=== PATIENT | female | born 1970 | race Asian ===

== ENCOUNTER 2020-05-02 23:40 | Emergency (ER) | payer SELFPAY ==
[~2020-05-02] VITALS: Ht 160 cm; Wt 65.9 kg
[2020-05-03] MEDS ORDERED: DICYCLOMINE HCL 10 MG/ML 2 ML AMP IM ONE (01:45)
[2020-05-03] MEDS ORDERED: KETOROLAC TROMETHAMINE 30 MG/ML VIAL IM ONE (01:45)
[2020-05-03 02:30] VITALS: BP 111/65
[2020-05-03 02:35] LABS: BASOPHILS % (AUTO) 0.4 % (0.0-2.0); HEMATOCRIT 35.4 % (36-46); HEMOGLOBIN 11.9 g/dL (12.0-16.0); LYMPHOCYTES # (AUTO) 1.3 K/uL (1.0-4.8); LYMPHOCYTES % (AUTO) 20.7 % (22.0-44.0); MEAN CORPUSCULAR HEMOGLOBIN 29.2 pg (26.0-34.0); MEAN CORPUSCULAR HGB CONC 33.6 G/dL (31.0-37.0); MEAN CORPUSCULAR VOLUME 87 fL (80-100); MONOCYTES # (AUTO) 0.4 K/uL (0.1-1.0); MONOCYTES % (AUTO) 5.7 % (2.0-9.0); NEUTROPHILS # (AUTO) 3.2 K/uL (1.8-7.7); NEUTROPHILS % (AUTO) 50.2 % (40.0-70.0); PLATELET COUNT (AUTO) 293 K/uL (150-450); RED BLOOD CELL COUNT(AUTO) 4.08 MIL/uL (4.00-5.20); RED CELL DISTRIBUTION WIDTH 13.8 % (11.5-14.5)
[2020-05-03 02:40] LABS: APPEARANCE,URINE CLOUDY (CLEAR); GLUCOSE, URINE (UA) NEGATIVE (NEGATIVE); KETONES,URINE 40 mg/dL (NEGATIVE); LEUKOCYTE ESTERASE ,URINE SMALL (NEGATIVE); NITRATE,URINE NEGATIVE (NEGATIVE); OCCULT BLOOD,URINE NEGATIVE (NEGATIVE); PROTEIN,URINE NEGATIVE (NEGATIVE)
[2020-05-03 02:44] LABS: ANION GAP 4 mmol/L (8-16); CALCIUM, TOTAL 8.8 mg/dL (8.8-10.5); CARBON DIOXIDE 30 mmol/L (22-29); CHLORIDE 106 mmol/L (98-107); CREATININE 0.96 mg/dL (0.60-1.30); GLOMERULAR FILTR. RATE CALC > 60 mL/min (>60); GLUCOSE,RANDOM 130 mg/dL (70-110); POTASSIUM 3.3 mmol/L (3.5-5.1); SODIUM SERUM 140 mmol/L (136-145); UREA NITROGEN, BLOOD 20 mg/dL (7-18)
[2020-05-03 02:48] LABS: BILIRUBIN,URINE PRELIM. POSITIVE (NEGATIVE)
[2020-05-03 02:52] LABS: ALANINE AMINOTRANSFERASE 15 U/L (12-78); ALBUMIN 3.2 g/dL (3.4-5.0); ALKALINE PHOSPHATASE 78 U/L (46-116); ASPARTATE AMINOTRANSFERASE 15 U/L (15-37); BILIRUBIN,TOTAL 0.4 mg/dL (0.1-1.0); LIPASE 120 U/L (73-393)
[2020-05-03 02:58] LABS: BACTERIA,URINE Few /HPF (None Seen); RBC,URINE 0-2 /HPF (0-2); SQUAMOUS EPITHELIAL CELL,UR Few /LPF (None Seen)
[2020-05-03] MEDS ORDERED: ONDANSETRON HCL 4 MG TABLET PO ONE (03:30)
[2020-05-03] MEDS ORDERED: RISP0.5T61 PO (21:57)
== END 2020-05-03 03:38 | disposition home or self-care (01) ==
LOC: EMS 23:40
DX: R10.9 Unspecified abdominal pain (principal); R19.7 Diarrhea, unspecified; R11.2 Nausea with vomiting, unspecified; F17.210 Nicotine dependence, cigarettes, uncomplicated
CPT/HCPCS: 36415; 80053; 81001; 83690; 83735; 85025; 96372; 99284; J0500; J1885; Q0162

== ENCOUNTER 2020-05-03 21:56 | Emergency (ER) | payer SELFPAY ==
[~2020-05-03] VITALS: Ht 160 cm; Wt 84.1 kg
[2020-05-03] MEDS ORDERED: RISP0.5T61 PO (21:57)
[2020-05-03] MEDS ORDERED: RisperiDONE 1 MG TABLET PO ONE ×2 (22:30)
[2020-05-03 23:30] VITALS: BP 121/74
== END 2020-05-03 23:33 | disposition home or self-care (01) ==
LOC: EMS 21:56
DX: L84 Corns and callosities (principal); F20.9 Schizophrenia, unspecified

== ENCOUNTER 2020-05-05 02:33 | Emergency (ER) | payer SELFPAY ==
[~2020-05-05] VITALS: Ht 160 cm; Wt 87.7 kg
[~2020-05-05 02:33] MED LIST: RISP0.5T61 PO
[2020-05-05 02:50] VITALS: BP 110/64
[2020-05-05] MEDS ORDERED: RisperiDONE 1 MG TABLET PO ONE (03:15)
== END 2020-05-05 03:45 | disposition home or self-care (01) ==
LOC: EMS 02:33
DX: L84 Corns and callosities (principal); F20.9 Schizophrenia, unspecified; F17.210 Nicotine dependence, cigarettes, uncomplicated

== ENCOUNTER 2024-06-20 00:13 | Emergency (ER) | payer MEDICAID ==
[~2024-06-20] VITALS: Ht 160 cm; Wt 75.0 kg
[2024-06-20 00:23] VITALS: BP 120/61; PULSE 110; RESP 16; TEMP 98.5; O2SAT 96
[2024-06-20 01:17] LABS: BASOPHILS % (AUTO) 0.4 % (0.0-2.0); EOSINOPHILS % (AUTO) 0.2 % (1.0-6.0); HEMATOCRIT 39.4 % (36-46); HEMOGLOBIN 12.7 g/dL (12.0-16.0); LYMPHOCYTES # (AUTO) 1.6 K/uL (1.0-4.8); LYMPHOCYTES % (AUTO) 16.4 % (22.0-44.0); MEAN CORPUSCULAR HEMOGLOBIN 28.1 pg (26.0-34.0); MEAN CORPUSCULAR HGB CONC 32.3 G/dL (31.0-37.0); MEAN CORPUSCULAR VOLUME 87 fL (80-100); MONOCYTES # (AUTO) 0.7 K/uL (0.1-1.0); MONOCYTES % (AUTO) 7.1 % (2.0-9.0); NEUTROPHILS # (AUTO) 7.2 K/uL (1.8-7.7); NEUTROPHILS % (AUTO) 75.9 % (40.0-70.0); PLATELET COUNT (AUTO) 286 K/uL (150-450); RED BLOOD CELL COUNT(AUTO) 4.52 MIL/uL (4.00-5.20); RED CELL DISTRIBUTION WIDTH 14.9 % (11.5-14.5); WHITE BLOOD COUNT (AUTO) 9.4 K/uL (4.5-11.0)
[2024-06-20 01:21] LABS: PH,URINE DRUG SCREEN 5.5 (5.0-8.0)
[2024-06-20 01:27] LABS: ALCOHOL, URINE DRUG SCREEN NEGATIVE (NEGATIVE); AMPHET/METH SCREEN,URINE NEGATIVE (NEGATIVE); BARBITURATE SCREEN, URINE NEGATIVE (NEGATIVE); BENZODIAZEPINES SCREEN,URINE NEGATIVE (NEGATIVE); CANNABINOID SCREEN,URINE NEGATIVE (NEGATIVE); COCAINE SCREEN,URINE NEGATIVE (NEGATIVE); METHADONE SCREEN, URINE NEGATIVE (NEGATIVE); OPIATE SCREEN,URINE NEGATIVE (NEGATIVE); PHENCYCLIDINE SCREEN,URINE NEGATIVE (NEGATIVE)
[2024-06-20 01:33] LABS: ALCOHOL, BLOOD (SERUM) < 3 mg/dL (0-10)
[2024-06-20 01:37] LABS: ANION GAP 16 mmol/L (8-16); CALCIUM, TOTAL 8.8 mg/dL (8.8-10.5); CARBON DIOXIDE 24 mmol/L (22-29); CHLORIDE 103 mmol/L (98-107); GLOMERULAR FILTR. RATE CALC 43 mL/min (>60); GLUCOSE,RANDOM 156 mg/dL (70-110); POTASSIUM 3.4 mmol/L (3.5-5.1); SODIUM SERUM 143 mmol/L (136-145); UREA NITROGEN, BLOOD 22 mg/dL (7-18)
[2024-06-20 06:04] LABS: COVID AG,FIA SOURCE NASAL SWAB
[2024-06-20 06:27] LABS: SARS-COV2 (COVID) ANTIGEN,FIA Negative (Negative)
== END 2024-06-20 08:16 | disposition home or self-care (01) ==
LOC: EMS 00:13
DX: F20.9 Schizophrenia, unspecified (principal); Z20.822 Contact with and (suspected) exposure to COVID-19
CPT/HCPCS: 99285; 87426; 80048; 85025; 36415; 80307; G0480

== ENCOUNTER 2024-06-24 12:21 | Inpatient (IN) | payer MEDICAID ==
[~2024-06-24] VITALS: Ht 162.6 cm; Wt 88.4 kg
[2024-06-24] MEDS: SODIUM CHLORIDE 0.9% 1,000 ML IV ONE ×2 (13:47→15:01)
[2024-06-24 14:01] LABS: BASOPHILS % (AUTO) 0.2 % (0.0-2.0); EOSINOPHILS % (AUTO) 0 % (1.0-6.0); HEMATOCRIT 39.5 % (36-46); HEMOGLOBIN 12.8 g/dL (12.0-16.0); LYMPHOCYTES # (AUTO) 0.9 K/uL (1.0-4.8); LYMPHOCYTES % (AUTO) 6.4 % (22.0-44.0); MEAN CORPUSCULAR HEMOGLOBIN 27.5 pg (26.0-34.0); MEAN CORPUSCULAR HGB CONC 32.4 G/dL (31.0-37.0); MEAN CORPUSCULAR VOLUME 85 fL (80-100); MONOCYTES # (AUTO) 0.9 K/uL (0.1-1.0); MONOCYTES % (AUTO) 6.6 % (2.0-9.0); NEUTROPHILS # (AUTO) 12.1 K/uL (1.8-7.7); PLATELET COUNT (AUTO) 287 K/uL (150-450); RED BLOOD CELL COUNT(AUTO) 4.66 MIL/uL (4.00-5.20); RED CELL DISTRIBUTION WIDTH 14.4 % (11.5-14.5)
[2024-06-24 14:02] LABS: NEUTROPHILS % (AUTO) 86.8 % (40.0-70.0)
[2024-06-24 14:09] LABS: ANION GAP 17 mmol/L (8-16); CALCIUM, TOTAL 8.1 mg/dL (8.8-10.5); CARBON DIOXIDE 20 mmol/L (22-29); CHLORIDE 98 mmol/L (98-107); CREATININE 2.41 mg/dL (0.60-1.30); GLOMERULAR FILTR. RATE CALC 21 mL/min (>60); GLUCOSE,RANDOM 130 mg/dL (70-110); POTASSIUM 3.4 mmol/L (3.5-5.1); SODIUM SERUM 135 mmol/L (136-145); UREA NITROGEN, BLOOD 82 mg/dL (7-18)
[2024-06-24 14:16] LABS: ALCOHOL, BLOOD (SERUM) < 3 mg/dL (0-10)
[2024-06-24 14:23] LABS: COVID AG,FIA SOURCE NPH
[2024-06-24 14:24] LABS: ALANINE AMINOTRANSFERASE 181 U/L (12-78); ALBUMIN 3.1 g/dL (3.4-5.0); ALKALINE PHOSPHATASE 80 U/L (46-116); ASPARTATE AMINOTRANSFERASE 551 U/L (15-37); BILIRUBIN,TOTAL 0.9 mg/dL (0.1-1.0); THYROID STIMULATING HORMONE 1.59 uIU/mL (0.36-3.74); TOTAL PROTEIN, SERUM 7.8 g/dL (6.4-8.2)
[2024-06-24 14:25] LABS: TROPONIN I-HIGH SENSITIVITY 299 ng/L (<51)
[2024-06-24 14:49] LABS: SARS-COV2 (COVID) ANTIGEN,FIA Negative (Negative)
[2024-06-24 15:16] LABS: MAGNESIUM 3.2 mg/dL (1.80-2.40)
[2024-06-24 15:48] LABS: ALCOHOL, URINE DRUG SCREEN NEGATIVE (NEGATIVE); AMPHET/METH SCREEN,URINE POSITIVE (NEGATIVE); BARBITURATE SCREEN, URINE NEGATIVE (NEGATIVE); BENZODIAZEPINES SCREEN,URINE NEGATIVE (NEGATIVE); CANNABINOID SCREEN,URINE NEGATIVE (NEGATIVE); COCAINE SCREEN,URINE NEGATIVE (NEGATIVE); METHADONE SCREEN, URINE NEGATIVE (NEGATIVE); OPIATE SCREEN,URINE NEGATIVE (NEGATIVE); PHENCYCLIDINE SCREEN,URINE NEGATIVE (NEGATIVE)
[2024-06-24 15:52] LABS: APPEARANCE,URINE HAZY (CLEAR); BILIRUBIN,URINE NEGATIVE (NEGATIVE); COLOR,URINE LIGHT ORANGE (YELLOW); GLUCOSE, URINE (UA) NEGATIVE (NEGATIVE); LEUKOCYTE ESTERASE ,URINE NEGATIVE (NEGATIVE); NITRATE,URINE NEGATIVE (NEGATIVE); OCCULT BLOOD,URINE LARGE (NEGATIVE); PROTEIN,URINE 100-200,SEE CONFIRM mg/dL (NEGATIVE); SPECIFIC GRAVITIY, URINE 1.023 (1.003-1.030); UROBILINOGEN,URINE <=1.0 mg/dL (<=1.0)
[2024-06-24 16:20] LABS: SULFOSALICYLIC ACID,URINE 2+ (Negative)
[2024-06-24 16:22] LABS: RBC,URINE 51-100 /HPF (0-2)
[2024-06-24 16:23] LABS: BACTERIA,URINE Many /HPF (None Seen); WBC,URINE 26-50 /HPF (0-5)
[2024-06-24 16:24] LABS: TROPONIN I-HIGH SENSITIVITY 270 ng/L (<51)
[2024-06-24] MEDS ORDERED: 0.9% SODIUM CHLORIDE 10 ML SYRINGE IVP PRN (17:30)
[2024-06-24] MEDS: CefTRIAXone 1 GM/DEXTROSE 50 ML IV SCH (17:59)
[2024-06-24 18:06] LABS: BASOPHILS % (AUTO) 0.2 % (0.0-2.0); EOSINOPHILS % (AUTO) 0 % (1.0-6.0); HEMATOCRIT 38.9 % (36-46); HEMOGLOBIN 12.6 g/dL (12.0-16.0); LYMPHOCYTES # (AUTO) 1.1 K/uL (1.0-4.8); LYMPHOCYTES % (AUTO) 8.1 % (22.0-44.0); MEAN CORPUSCULAR HEMOGLOBIN 27.8 pg (26.0-34.0); MEAN CORPUSCULAR HGB CONC 32.5 G/dL (31.0-37.0); MEAN CORPUSCULAR VOLUME 85 fL (80-100); MONOCYTES # (AUTO) 0.8 K/uL (0.1-1.0); MONOCYTES % (AUTO) 6.4 % (2.0-9.0); NEUTROPHILS # (AUTO) 11.2 K/uL (1.8-7.7); PLATELET COUNT (AUTO) 264 K/uL (150-450); RED BLOOD CELL COUNT(AUTO) 4.55 MIL/uL (4.00-5.20); RED CELL DISTRIBUTION WIDTH 14.4 % (11.5-14.5); WHITE BLOOD COUNT (AUTO) 13.2 K/uL (4.5-11.0)
[2024-06-24 18:14] LABS: NEUTROPHILS % (AUTO) 85.3 % (40.0-70.0)
[2024-06-24 18:16] LABS: ANION GAP 16 mmol/L (8-16); CALCIUM, TOTAL 8.1 mg/dL (8.8-10.5); CARBON DIOXIDE 20 mmol/L (22-29); CHLORIDE 100 mmol/L (98-107); CREATININE 2.17 mg/dL (0.60-1.30); GLOMERULAR FILTR. RATE CALC 24 mL/min (>60); GLUCOSE,RANDOM 110 mg/dL (70-110); POTASSIUM 3.4 mmol/L (3.5-5.1); SODIUM SERUM 136 mmol/L (136-145); UREA NITROGEN, BLOOD 74 mg/dL (7-18)
[2024-06-24 18:24] LABS: LACTIC ACID 1.7 mmol/L (0.4-2.0)
[2024-06-24 18:30] LABS: ALANINE AMINOTRANSFERASE 183 U/L (12-78); ALBUMIN 2.9 g/dL (3.4-5.0); ALKALINE PHOSPHATASE 77 U/L (46-116); ASPARTATE AMINOTRANSFERASE 574 U/L (15-37); BILIRUBIN,TOTAL 0.8 mg/dL (0.1-1.0); LACTATE DEHYDROGENASE 983 U/L (81-234); TOTAL PROTEIN, SERUM 7.4 g/dL (6.4-8.2)
[2024-06-24] MEDS ORDERED: ONDANSETRON HCL 4 MG/2 ML VIAL IVP PRN (19:45)
[2024-06-24] MEDS ORDERED: ACETAMINOPHEN 325 MG TABLET PO PRN (19:45)
[2024-06-24] MEDS: DOCUSATE SODIUM 100 MG CAPSULE PO SCH (21:00)
[2024-06-24] MEDS: POTASSIUM CHL 10 MEQ/WATER 50 ML IV SCH (22:30)
[2024-06-24] MEDS: MORPHINE SULFATE 2 MG/ML SYRINGE IVP ONE (23:37)
[2024-06-24] MEDS: HEPARIN SODIUM,PORCINE 5,000 UNITS/ML VIAL SQ SCH (23:39)
[2024-06-24 23:41] LABS: TROPONIN I-HIGH SENSITIVITY 218 ng/L (<51)
[2024-06-24] MEDS ORDERED: SODIUM CHLORIDE 0.9% 0 ML IV ONE (23:49)
[2024-06-25] VITALS: BP 107/76; PULSE 89; RESP 16; TEMP 97.8; O2SAT 93
[2024-06-25 03:10] LABS: CREATININE,URINE RANDOM 101.7 mg/dL (30.0-125.0)
[2024-06-25 04:37] VITALS: BP 102/60; PULSE 89; RESP 16; TEMP 98.3; O2SAT 96
[2024-06-25 07:09] LABS: BASOPHILS % (AUTO) 0.3 % (0.0-2.0); EOSINOPHILS % (AUTO) 0.1 % (1.0-6.0); HEMATOCRIT 33.4 % (36-46); HEMOGLOBIN 11.1 g/dL (12.0-16.0); LYMPHOCYTES # (AUTO) 0.9 K/uL (1.0-4.8); LYMPHOCYTES % (AUTO) 11.5 % (22.0-44.0); MEAN CORPUSCULAR HEMOGLOBIN 28.6 pg (26.0-34.0); MEAN CORPUSCULAR HGB CONC 33.4 G/dL (31.0-37.0); MEAN CORPUSCULAR VOLUME 86 fL (80-100); MONOCYTES # (AUTO) 0.6 K/uL (0.1-1.0); MONOCYTES % (AUTO) 7.4 % (2.0-9.0); NEUTROPHILS # (AUTO) 6.4 K/uL (1.8-7.7); NEUTROPHILS % (AUTO) 80.7 % (40.0-70.0); PLATELET COUNT (AUTO) 227 K/uL (150-450); RED CELL DISTRIBUTION WIDTH 14.2 % (11.5-14.5); WHITE BLOOD COUNT (AUTO) 7.9 K/uL (4.5-11.0)
[2024-06-25 07:30] VITALS: BP 113/56; PULSE 86; RESP 16; TEMP 98.3; O2SAT 96
[2024-06-25 08:01] LABS: CALCIUM, TOTAL 7.8 mg/dL (8.8-10.5); CREATININE 1.72 mg/dL (0.60-1.30); POTASSIUM 3.4 mmol/L (3.5-5.1)
[2024-06-25 11:40] VITALS: BP 116/55; PULSE 80; RESP 18; TEMP 98.8; O2SAT 96
[2024-06-25] MEDS: SODIUM CHLORIDE 0.9% 1,000 ML IV ONE (14:20)
[2024-06-25 15:58] VITALS: BP 114/49; PULSE 80; RESP 18; TEMP 99.4; O2SAT 95
[2024-06-25 22:13] VITALS: BP 110/63; PULSE 85; TEMP 98.4; O2SAT 97
[2024-06-25] MEDS: OxyCODONE HCL/ACETAMINOPHEN 5-325 MG TABLET PO PRN (22:15)
[2024-06-26 04:15] VITALS: BP 102/58; PULSE 74; RESP 18; TEMP 98.3; O2SAT 96
[2024-06-26 07:56] VITALS: BP 115/62; PULSE 75; RESP 18; TEMP 97.7; O2SAT 95
[2024-06-26] MEDS: SODIUM CHLORIDE 0.9% 1,000 ML IV SCH (09:33)
[2024-06-26] MEDS: RINGERS SOLUTION,LACTATED 1,000 ML IV SCH (11:16)
[2024-06-26] MEDS: RINGERS SOLUTION,LACTATED 1,000 ML IV ONE (11:16)
[2024-06-26 11:33] LABS: BASOPHILS % (AUTO) 0.5 % (0.0-2.0); EOSINOPHILS % (AUTO) 1.1 % (1.0-6.0); HEMATOCRIT 31.7 % (36-46); HEMOGLOBIN 10.4 g/dL (12.0-16.0); LYMPHOCYTES # (AUTO) 1.3 K/uL (1.0-4.8); LYMPHOCYTES % (AUTO) 26.1 % (22.0-44.0); MEAN CORPUSCULAR HGB CONC 32.9 G/dL (31.0-37.0); MEAN CORPUSCULAR VOLUME 85 fL (80-100); MONOCYTES # (AUTO) 0.4 K/uL (0.1-1.0); MONOCYTES % (AUTO) 7.2 % (2.0-9.0); NEUTROPHILS # (AUTO) 3.3 K/uL (1.8-7.7); NEUTROPHILS % (AUTO) 65.1 % (40.0-70.0); PLATELET COUNT (AUTO) 226 K/uL (150-450); RED BLOOD CELL COUNT(AUTO) 3.72 MIL/uL (4.00-5.20); RED CELL DISTRIBUTION WIDTH 14.4 % (11.5-14.5); WHITE BLOOD COUNT (AUTO) 5.1 K/uL (4.5-11.0)
[2024-06-26 11:46] LABS: CALCIUM, TOTAL 8.1 mg/dL (8.8-10.5); CREATININE 1.16 mg/dL (0.60-1.30); POTASSIUM 3.6 mmol/L (3.5-5.1)
[2024-06-26 12:01] LABS: MAGNESIUM 2.4 mg/dL (1.80-2.40)
[2024-06-26 12:19] VITALS: BP 132/67; PULSE 68; RESP 18; TEMP 97.5; O2SAT 100
[2024-06-26 17:55] VITALS: BP 131/70; PULSE 88; RESP 18; TEMP 98.1; O2SAT 96
[2024-06-26 19:47] VITALS: BP 118/64; PULSE 87; RESP 20; TEMP 99; O2SAT 94
[2024-06-27] VITALS (7 sets, daily range): BP systolic 119–147; BP diastolic 54–75; PULSE 69–85; RESP 18–19; TEMP 98–98.9; O2SAT 95–98
[2024-06-27] MEDS: TAMSULOSIN HCL 0.4 MG CAPSULE PO SCH (05:32)
[2024-06-27 06:51] LABS: CALCIUM, TOTAL 8.4 mg/dL (8.8-10.5); CREATININE 1.12 mg/dL (0.60-1.30); MAGNESIUM 1.7 mg/dL (1.80-2.40); POTASSIUM 3.5 mmol/L (3.5-5.1)
[2024-06-27] MEDS: MAGNESIUM SULFATE 2 GM/WATER 50 ML IV ONE (08:48)
[2024-06-27] MEDS ORDERED: SODIUM CHLORIDE 0.9% 100 ML ONE (19:13)
[2024-06-28] VITALS (7 sets, daily range): BP systolic 117–143; BP diastolic 63–82; PULSE 63–96; RESP 16–19; TEMP 97.8–98.5; O2SAT 94–98
[2024-06-28 09:51] LABS: CALCIUM, TOTAL 8.7 mg/dL (8.8-10.5); CREATININE 1.06 mg/dL (0.60-1.30); POTASSIUM 3.2 mmol/L (3.5-5.1)
[2024-06-28] MEDS: POTASSIUM CHLORIDE 20 MEQ ER TABLET PO ONE (15:00)
[2024-06-28] MEDS: ETHYL ALCOHOL 62% ANTISEPTIC NASAL SANITIZER 0.6 ML AMPUL NASAL SCH (20:45)
[2024-06-29 04:30] VITALS: BP 132/70; PULSE 72; RESP 18; TEMP 97.7; O2SAT 96
[2024-06-29 08:00] VITALS: BP 123/67; PULSE 88; RESP 18; TEMP 98.1; O2SAT 98
[2024-06-29 08:02] LABS: CALCIUM, TOTAL 8.3 mg/dL (8.8-10.5); CREATININE 1.16 mg/dL (0.60-1.30)
[2024-06-29] MEDS: POTASSIUM CHLORIDE 10% 40 MEQ/30 ML LIQUID UDCUP PO ONE (10:44)
== END 2024-06-29 19:04 | disposition home or self-care (01) | DRG 720 ==
LOC: EMS 12:21 → EDH 18:35 → 5N 20:53 → 6N 06-28 22:00
PROVIDERS: ADMIT Internal Medicine; ATTEND Internal Medicine
DX: A41.9 Sepsis, unspecified organism (principal); N17.0 Acute kidney failure with tubular necrosis; G93.41 Metabolic encephalopathy; N13.9 Obstructive and reflux uropathy, unspecified; N39.0 Urinary tract infection, site not specified; M62.82 Rhabdomyolysis; N18.9 Chronic kidney disease, unspecified; F15.10 Other stimulant abuse, uncomplicated; R79.89 Other specified abnormal findings of blood chemistry; R53.81 Other malaise; F20.9 Schizophrenia, unspecified; K76.0 Fatty (change of) liver, not elsewhere classified; Z20.822 Contact with and (suspected) exposure to COVID-19; E86.0 Dehydration; Z59.01 Sheltered homelessness
CPT/HCPCS: 51702; 71045; 71250; 72192; 74150; 76700; 80048; 80053; 80307; 81001; 81002; 82140; 82550; 82570; 83605; 83615; 83735; 83880; 84145; 84300; 84443; 84484; 85025; 85730; 87040; 87081; 87086; 87186; 93005; 93306; 97163; 97166; 97535; 99285; G0480; J0696; J1644; J2270; J3475; J3480; J7030; J7040; J7050; J7120; 36415-L1; 36415-TC

== ENCOUNTER 2024-06-29 19:25 | Emergency (ER) | payer MEDICAID ==
[~2024-06-29] VITALS: Ht 160 cm; Wt 87.7 kg
[2024-06-29 19:31] VITALS: TEMP 97.2
[2024-06-29 22:49] VITALS: BP 125/59; PULSE 72; RESP 16; O2SAT 100
[2024-06-29] MEDS: ARIPiprazole 10 MG TABLET PO ONE (23:39)
== END 2024-06-30 00:02 | disposition home or self-care (01) ==
LOC: EMS 19:25
DX: F20.9 Schizophrenia, unspecified (principal); Z59.00 Homelessness unspecified
CPT/HCPCS: 99284; Z7502; Z7610